=== PATIENT | male | born 1965 | race American Indian/Alaskan Native ===

== ENCOUNTER 2016-07-10 17:55 | Emergency (ER) | payer SELFPAY ==
[2016-07-10 19:31] LABS: Hematocrit 41.7 % (35.5-45.6); Hemoglobin 13.2 gm/dl (11.8-15.2); Mean Corpuscular HGB Conc 32 % (32-34); Mean Corpuscular Volume 81 fl (84-94); Platelet Count 214 K/mm3 (140-440); Red Blood Count 5.13 M/mm3 (3.65-5.03); Red Cell Distribution Width 15.2 % (13.2-15.2); White Blood Count 10.3 K/mm3 (4.5-11.0)
[2016-07-10 19:38] LABS: Mean Corpuscular Hemoglobin 26 pg (28-32)
[2016-07-10] MEDS ORDERED: NACL 0.9% 1000 ML 1,000 ML IV ONE ×2 (19:39→21:08)
[2016-07-10] MEDS ORDERED: ZOFRAN IV ONE ×2 (19:39→21:08)
[2016-07-10 19:46] LABS: Albumin 3.8 g/dL (3.9-5); Albumin/Globulin Ratio 1.2 %; BUN/Creatinine Ratio 10.71; Bilirubin,Total 0.9 mg/dL (0.1-1.2); Calcium 8.4 mg/dL (8.4-10.2); Chloride 98.5 mmol/L (98-107); Total Protein 6.9 g/dL (6.3-8.2)
[2016-07-10 20:06] LABS: Basophils % (Manual) 0 % (0.0-1.8); Blastocytes % (Manual) 0 %; Eosinophils % (Manual) 0 % (0.0-4.3)
[2016-07-10 20:07] LABS: Diff Status Complete; RBC Morphology Normal
[2016-07-10] MEDS ORDERED: VALIUM IV ONE (21:08)
[2016-07-10] MEDS ORDERED: MORPHINE IV ONE (21:08)
--- NOTE | 2016-07-10 23:04 | Emergency Department Report ---
HPI - General Chief Complaint: Nausea/Vomiting/Diarrhea Time Seen by Provider: 07/10/16 19:28 - HPI HPI: The patient is a 50-year-old male who presents for evaluation of abdominal pain and upset stomach. The patient reports constant and cramping abdominal pain since 11 PM last night, 21 hours prior to my evaluation, 10/10 in severity, associated with nausea, vomiting, and multiple episodes of loose watery stools. The patient denies fever, flank pain, dysuria, hematuria, blood in the stools, black tarry stools, recent antibiotic use, travel outside the country, exposure to raw or uncooked seafood, reheated foods, untreated water, unpasteurized dairy. ED Past Medical Hx - Past Medical History Previous Medical History?: Yes Hx HIV: Yes (undetectable CD4 count) - Surgical History Past Surgical History?: No - Medications Home Medications: Home Medications Medication Instructions Recorded Confirmed Last Taken Type Elvitegr/Cobicist/Emtric/Tenof 1 each PO DAILY 07/10/16 07/10/16 Unknown History [Stribild Tablet] HYDROcodone/APAP 7.5-325 [[place] 1 each PO Q8HR PRN #12 tablet 07/10/16 Unknown Rx 7.5-325 mg TAB] Ondansetron [Zofran TAB] 4 mg PO Q6HR PRN #20 tablet 07/10/16 Unknown Rx Tamsulosin [Flomax] 0.4 mg PO BID 07/10/16 07/10/16 Unknown History ED Review of Systems ROS: Stated complaint: WEAK/FAINT Other details as noted in HPI Constitutional: denies: fever ENT: denies: throat or neck pain Respiratory: denies: cough, shortness of breath Cardiovascular: denies: chest pain Endocrine: denies unexplained weight loss or gain Gastrointestinal: reports abdominal pain, nausea,v/d Genitourinary: denies: dysuria Musculoskeletal: denies: leg swelling Skin: denies: rash Neurological: denies: headache Hematological/Lymphatic: denies: easy bleeding or easy bruising Psych: denies sadness or hopelessness Physical Exam - Physical Exam Vital Signs: Vital Signs 07/10/16 07/10/16 18:16 19:45 Temperature 98.8 F Pulse Rate 82 96 H Respiratory 22 16 Rate Blood Pressure 96/74 Blood Pressure 103/59 [Right] O2 Sat by Pulse 97 99 Oximetry Physical Exam: General: well-nourished, well-developed, no acute distress Head: Normocephalic, atraumatic Eyes: normal sclera ENT: Mucous membranes are pale and dry Neck: No neck stiffness, no cervical adenopathy Respiratory: Breath sounds equal bilaterally, no wheezing, rales, or rhonchi Cardio: S1 and S2 present, no murmurs, rubs, gallops, capillary refill is delayed Abdomen: Normoactive bowel sounds, soft abdomen, generalized tenderness to palpation present, no rigidity, no guarding or rebound tenderness Chest WALL/Back: No tenderness to palpation of the chest wall, no CVA tenderness with percussion Musc: No pitting edema Skin: No rash Neuro: no facial drooping, normal speech Psych: Normal affect ED Course Vital Signs 07/10/16 07/10/16 18:16 19:45 Temperature 98.8 F Pulse Rate 82 96 H Respiratory 22 16 Rate Blood Pressure 96/74 Blood Pressure 103/59 [Right] O2 Sat by Pulse 97 99 Oximetry ED Medical Decision Making - Lab Data Result diagrams: 07/10/16 19:11 07/10/16 19:11 - Medical Decision Making The patient was seen and examined by myself. The patient is placed on a cook fruit and continuous pulse ox. On initial evaluation, the patient was found to be in no distress. Evaluation orders are placed. IV access is established and the patient is given 2 L normal saline fluid bolus, Zofran for nausea, and IV morphine for pain. Lab results were non-concerning including WBC , hemoglobin, hematocrit, electrolytes, renal function, LFTs. The patient was reevaluated and reported that their symptoms were markedly improved. The patient has not vomited or diarrhea for over 2 hours here in the emergency department. The patient is stable for discharge with outpatient follow-up. The patient is given follow-up and return instructions. The patient expressed understanding and agreed with the plan. The patient is discharged in stable condition. Critical care attestation.: If time is entered above; I have spent that time in minutes in the direct care of this critically ill patient, excluding procedure time. ED Disposition Clinical Impression: Dehydration, Abdominal pain, acute, generalized, Nausea and vomiting in adult, Orthostatic dizziness Disposition: DISCHARGED TO HOME OR SELFCARE Is pt being admited?: No Does the pt Need Aspirin: No Condition: Stable Instructions: Gastroenteritis (ED), Acute Abdominal Pain (ED), Dehydration (ED) , Acute Nausea and Vomiting (ED), Weakness (ED) Referrals: PRIMARY CARE,MD [Primary Care Provider] - 3-5 Days Time of Disposition: 22:07
[2016-07-11] MEDS ORDERED: VALIUM ONE (02:04)
[2016-07-11 07:02] VITALS: BP 100/59
== END 2016-07-11 06:59 | disposition home or self-care (01) ==
LOC: ED 17:55
DX: E86.0 Dehydration (principal); R10.84 Generalized abdominal pain; R11.2 Nausea with vomiting, unspecified; R42 Dizziness and giddiness; Z21 Asymptomatic human immunodeficiency virus [HIV] infection status
CPT/HCPCS: 36415; 80053; 82270; 85007; 85025; 87040; 87045; 87493; 96361; 96374; 96375; 99284; J2270; J2405; J3360; J7030

== ENCOUNTER 2016-07-14 11:14 | Emergency (ER) | payer OTHER ==
[2016-07-14 12:39] LABS: Bilirubin,Urine NEG (Negative); Blood,Urine MOD (Negative); Ketones,Urine 80 mg/dL (Negative); Leukocyte Esterase,Urine NEG (Negative); Mucus,Urine 2+ /HPF; Nitrite,Urine NEG (Negative); Urobilinogen,Urine < 2.0 mg/dL (<2.0)
[2016-07-14 12:44] LABS: Hematocrit 36.8 % (35.5-45.6); Mean Corpuscular HGB Conc 33 % (32-34); Mean Corpuscular Hemoglobin 26 pg (28-32); Mean Corpuscular Volume 81 fl (84-94); Platelet Count 261 K/mm3 (140-440); Red Blood Count 4.56 M/mm3 (3.65-5.03); Red Cell Distribution Width 15.2 % (13.2-15.2); White Blood Count 6.8 K/mm3 (4.5-11.0)
[2016-07-14 13:02] LABS: Alanine Aminotransferase 13 units/L (7-56); Albumin 3.6 g/dL (3.9-5); Alkaline Phosphatase 54 units/L (35-129); Anion Gap 20 mmol/L; Blood Urea Nitrogen 9 mg/dL (9-20); Calcium 8.7 mg/dL (8.4-10.2); Carbon Dioxide 25 mmol/L (22-30); Chloride 91.2 mmol/L (98-107); Glucose 91 mg/dL (75-100); Lipase 14 units/L (13-60); Potassium 3.4 mmol/L (3.6-5.0); Sodium 133 mmol/L (137-145); Total Protein 7.2 g/dL (6.3-8.2)
[2016-07-14 14:03] LABS: Basophils % (Manual) 0 % (0.0-1.8); Blastocytes % (Manual) 0 %; Eosinophils % (Manual) 0 % (0.0-4.3)
[2016-07-14 14:04] LABS: Diff Status Complete; Platelet Estimate Consistent w Auto; RBC Morphology Normal
[2016-07-14] MEDS ORDERED: NACL 0.9% 1000 ML 1,000 ML IV ONE (17:58)
[2016-07-14] MEDS ORDERED: VALIUM IV ONE (17:58)
[2016-07-14] MEDS ORDERED: ZOFRAN IV ONE (17:58)
[2016-07-14] MEDS ORDERED: MORPHINE IV ONE ×2 (17:58→19:48)
--- NOTE | 2016-07-14 18:09 | Emergency Department Report ---
HPI - General Chief Complaint: Abdominal Pain - HPI HPI: The patient is a 50-year-old male who presents for evaluation of abdominal pain and upset stomach. The patient reports constant and cramping abdominal pain for the past 5 days, 10/10 in severity, exacerbated with retching, and associated with nausea, vomiting, and multiple episodes of loose watery stools. The patient denies fever, flank pain, dysuria, hematuria, recent antibiotic use , travel outside the country, exposure to raw or uncooked seafood, reheated foods, untreated water, unpasteurized dairy. ED Past Medical Hx - Past Medical History Hx HIV: Yes (undetectable CD4 count) - Social History Smoking Status: Never Smoker Substance Use Type: None - Medications Home Medications: Home Medications Medication Instructions Recorded Confirmed Last Taken Type Elvitegr/Cobicist/Emtric/Tenof 1 each PO DAILY 07/10/16 07/10/16 Unknown History [Stribild Tablet] HYDROcodone/APAP 7.5-325 [[place] 1 each PO Q8HR PRN #12 tablet 07/10/16 Unknown Rx 7.5-325 mg TAB] Ondansetron [Zofran TAB] 4 mg PO Q6HR PRN #20 tablet 07/10/16 Unknown Rx Tamsulosin [Flomax] 0.4 mg PO BID 07/10/16 07/10/16 Unknown History metroNIDAZOLE [Flagyl] 500 mg PO Q8HR #21 tablet 07/14/16 Unknown Rx ED Review of Systems ROS: Stated complaint: CONSTANT DIARRHEA Other details as noted in HPI Constitutional: denies: fever ENT: denies: throat or neck pain Respiratory: denies: cough, shortness of breath Cardiovascular: denies: chest pain Endocrine: denies unexplained weight loss or gain Gastrointestinal: reports abdominal pain, nausea Genitourinary: denies: dysuria Musculoskeletal: denies: leg swelling Skin: denies: rash Neurological: denies: headache Hematological/Lymphatic: denies: easy bleeding or easy bruising Psych: denies sadness or hopelessness Physical Exam - Physical Exam Vital Signs: Vital Signs 07/14/16 11:25 Temperature 99.6 F Pulse Rate 95 H Respiratory 20 Rate Blood Pressure 122/76 O2 Sat by Pulse 99 Oximetry Physical Exam: General: well-nourished, well-developed, no acute distress Head: Normocephalic, atraumatic Eyes: normal sclera ENT: Mucous membranes are pale and dry Neck: No neck stiffness, no cervical adenopathy Respiratory: Breath sounds equal bilaterally, no wheezing, rales, or rhonchi Cardio: S1 and S2 present, no murmurs, rubs, gallops, capillary refill is delayed Abdomen: Normoactive bowel sounds, soft abdomen, generalized tenderness to palpation present, no rigidity, no guarding or rebound tenderness Musc: No pitting edema Skin: No rash Neuro: no facial drooping, normal speech Psych: Normal affect ED Course Vital Signs 07/14/16 11:25 Temperature 99.6 F Pulse Rate 95 H Respiratory 20 Rate Blood Pressure 122/76 O2 Sat by Pulse 99 Oximetry ED Medical Decision Making - Lab Data Result diagrams: 07/14/16 12:10 07/14/16 12:10 - Medical Decision Making The patient was seen and examined by myself. The patient is placed on a ekg monitor and continuous pulse ox. On initial evaluation, the patient was found to be in no distress. Evaluation orders are placed. IV access is established and the patient is given 1 L normal saline fluid bolus for txt of dehydration, Zofran for nausea, and IV morphine for pain. Lab results were non-concerning including WBC, hemoglobin, hematocrit, electrolytes, renal function, LFTs, lipase, and urinalysis. Medical records are reviewed and revealed that the patient receive stool studies during ED evaluation 4 days ago. Stool studies exhibited negative for fecal WBCs, negative for C. difficile toxin, and negative cultures for salmonella, Shigella , camphylabacter, or Escherichia Coli 0157. CT scan of the abdomen and pelvis with IV contrast exhibits diffuse wall thickening of colon, without significant fat standing or signs of inflammation. Additionally the appendix is normal, and there are no findings suggestive of bowel perforation or obstruction. The patient is reevaluated after a second dose of IV morphine, and he remains with significant pain and nausea. As the patient's pain is intractable, he will be admitted for continued pain management, fluid resuscitation, and close monitoring. The on-call hospitalist service was contacted. They agreed to admit the patient for further treatment and close monitoring. The ED admit order was placed. The patient was admitted in guarded condition. Critical care attestation.: If time is entered above; I have spent that time in minutes in the direct care of this critically ill patient, excluding procedure time. ED Disposition Clinical Impression: Dehydration, Nausea and vomiting in adult, Abdominal pain, acute, generalized, Acute hemorrhagic colitis Disposition: OP ADMITTED IP TO THIS HOSP Is pt being admited?: Yes Does the pt Need Aspirin: Yes Condition: Stable Prescriptions: metroNIDAZOLE [Flagyl] 500 mg PO Q8HR #21 tablet Referrals: PRIMARY CARE, [Primary Care Provider] - 3-5 Days Time of Disposition: 18:02
[2016-07-14] MEDS ORDERED: NACL ONE (18:43)
[2016-07-14 19:23] VITALS: BP 131/75
--- NOTE | 2016-07-14 19:30 | Cat Scan Report ---
FINAL REPORT EXAM: CT ABDOMEN PELVIS W CON HISTORY: LLQ abdominal pain, N/V, diarrhea x5d TECHNIQUE: CT images are acquired through the Abdomen and Pelvis arterial and delayed venous phases following intravenous administration of 100 cc Omnipaque 300 contrast. Transaxial, coronal and sagittal reformations are provided. PRIORS: None FINDINGS: Partially visualized intrathoracic contents are unremarkable. The liver, gallbladder, pancreas, spleen, and adrenal glands are unremarkable. Kidneys show no worrisome lesions, hydronephrosis, or calculi. There is a 17 millimeter polypoid bladder lesion seen posteriorly on axial series 3, image 150. No pericystic stranding or fluid. Multiple pelvic phleboliths. Diffuse colonic wall thickening without significant adjacent edema or stranding. Fluid in the sigmoid colon. There is a small amount of free fluid in the pelvis and right lower quadrant. No acute appendicitis. Small and large bowel are normal in caliber. No acute appendicitis. No free air, free fluid, or lymphadenopathy identified. Aorta is normal in course and caliber. Superficial soft tissues are unremarkable. No acute or aggressive appearing skeletal findings. IMPRESSION: Diffuse mild colonic wall thickening without surrounding stranding or fluid may or be secondary to infectious or inflammatory colitis. Consider gastroenterology follow-up/endoscopy as warranted. Polypoid lesion measuring up to 17 millimeters in the posterior urinary bladder is indeterminate. Urology follow-up for consideration of direct visualization is recommended.
--- NOTE | 2016-07-14 19:36 | Consultation ---
History of Present Illness - Reason for Consult Consult date: 07/14/16 Requesting physician: SIVA HANNA - History of Present Illness 50 YO Male with HIV presents to ED for evaluation. Pt states that he has experienced abdominal pain and upset stomach for the past five days, with worsening symptoms over the past 12 hours. Pain is 3/10, diffuse, nonradiating , no exacerbation, or alleviating factors, constant, The patient reports constant and cramping abdominal pain for the past 5 days. The patient denies fever, chills, CP, Palpitations, flank pain, dysuria, hematuria, recent antibiotic use, foreign travel, exposure to raw or uncooked seafood, reheated foods, ingestion of food or water from new or different sources.. Past History Past Medical History: HIV/AIDS Past Surgical History: No surgical history, Other (reviesed) Social history: single. denies: smoking, alcohol abuse, prescription drug abuse Family history: no significant family history, other (reviewed) Medications and Allergies Allergies Allergy/AdvReac Type Severity Reaction Status Date / Time No Known Allergies Allergy Unverified 07/10/16 18:15 Home Medications Medication Instructions Recorded Confirmed Last Taken Type Elvitegr/Cobicist/Emtric/Tenof 1 each PO DAILY 07/10/16 07/10/16 Unknown History [Stribild Tablet] HYDROcodone/APAP 7.5-325 [[place] 1 each PO Q8HR PRN #12 tablet 07/10/16 Unknown Rx 7.5-325 mg TAB] Ondansetron [Zofran TAB] 4 mg PO Q6HR PRN #20 tablet 07/10/16 Unknown Rx Tamsulosin [Flomax] 0.4 mg PO BID 07/10/16 07/10/16 Unknown History metroNIDAZOLE [Flagyl] 500 mg PO Q8HR #21 tablet 07/14/16 Unknown Rx Review of Systems All systems: negative Gastrointestinal: abdominal pain Exam - Constitutional Vitals: Temp Pulse Resp BP Pulse Ox 99.6 F 96 H 20 131/75 98 07/14/16 11:25 07/14/16 19:22 07/14/16 19:22 07/14/16 19:22 07/14/16 19:22 General appearance: Present: no acute distress, well-nourished - EENT Eyes: Present: PERRL ENT: hearing intact, clear oral mucosa - Neck Neck: Present: supple, normal ROM - Respiratory Respiratory effort: normal Respiratory: bilateral: CTA - Cardiovascular Heart Sounds: Present: S1 & S2. Absent: rub, click - Extremities Extremities: pulses symmetrical, No edema Peripheral Pulses: within normal limits - Abdominal General gastrointestinal: Present: soft, non-tender, non-distended, normal bowel sounds Male genitourinary: Present: normal - Integumentary Integumentary: Present: clear, warm, dry - Musculoskeletal Musculoskeletal: gait normal, strength equal bilaterally - Psychiatric Psychiatric: appropriate mood/affect, intact judgment & insight - Neurologic Neurologic: CNII-XII intact, moves all extremities Results - Labs CBC & Chem 7: 07/14/16 12:10 07/14/16 12:10 Labs: Abnormal lab results 07/14/16 07/14/16 Range/Units 12:10 12:10 MCV 81 L (84-94) fl MCH 26 L (28-32) pg Seg Neuts % (Manual) 30.0 L (40.0-70.0) % Monocytes % (Manual) 30.0 H (0.0-7.3) % Monocytes # (Manual) 2.0 H (0.0-0.8) K/mm3 Sodium 133 L (137-145) mmol/L Potassium 3.4 L (3.6-5.0) mmol/L Chloride 91.2 L (98-107) mmol/L Albumin 3.6 L (3.9-5) g/dL Assessment and Plan - Patient Problems (1) Gastroenteritis Status: Acute Plan to address problem: Empiric abx, IVF, supportive care. Pt instructed to have soft, bland diet, f/u pcp 3-5 days for f/u care, f/u GI prn for further evaluation.
== END 2016-07-14 20:22 | disposition admitted as inpatient to this hospital (09) ==
LOC: ED 11:14
DX: K52.9 Noninfective gastroenteritis and colitis, unspecified (principal); R10.84 Generalized abdominal pain; E86.0 Dehydration; R11.2 Nausea with vomiting, unspecified
CPT/HCPCS: 36415; 74177; 80053; 81001; 83690; 85007; 85025; 96361; 96374; 96375; 96376; 99285; J2270; J2405; J3360; J7030; Q9967